=== PATIENT | female | born 1965 | race Caucasian/White ===

== ENCOUNTER 2020-12-26 12:08 | Emergency (ER) | payer SELFPAY ==
[~2020-12-26] VITALS: Ht 154.9 cm; Wt 70.3 kg
[2020-12-26 12:12] VITALS: BP 156/139
--- NOTE | 2020-12-26 12:15 | NUR ---
PT AMBULATED TO BED 04.
[2020-12-26] MEDS ORDERED: NACL 0.9% 1,000 ML IV SCH (12:20)
--- NOTE | 2020-12-26 12:20 | NUR ---
55 YO F BIB SELF FOR C/C OF DIZZINESS SINCE YESTERDAY WITH N/V STARTING TODAY. PT DENIES PAIN AT THIS TIME. PT DENIES FEVER, CHILLS, CONTACT WITH COVID, SOB. 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 SIDE RAILS X1. MED HX: DENIES
--- NOTE | 2020-12-26 12:25 | NUR ---
EKG AT BEDSIDE
--- NOTE | 2020-12-26 12:32 | NUR ---
LABS COLLECTED AND GIVEN TO REGIONAL BRANCH MANAGER
--- NOTE | 2020-12-26 12:36 | NUR ---
RAD AT BEDSIDE
[2020-12-26 12:37] LABS: BASOPHILS % (AUTO) 0.7 % (0.0-2.0); EOSINOPHILS % (AUTO) 0.2 % (0.0-4.0); HEMATOCRIT 39.4 % (36-48); HEMOGLOBIN 13.4 g/dL (12.0-16.0); LYMPHOCYTES # (AUTO) 1.8 K/uL (2.5-16.5); LYMPHOCYTES % (AUTO) 27.2 % (20.5-51.1); MEAN CORPUSCULAR HEMOGLOBIN 32 pg (27-31); MEAN CORPUSCULAR HGB CONC 34 g/dL (33-37); MONOCYTES # (AUTO) 0.4 K/uL (0.8-1.0); MONOCYTES % (AUTO) 5.7 % (1.7-9.3); NEUTROPHILS # (AUTO) 4.3 K/uL (1.8-7.7); NEUTROPHILS % (AUTO) 66.2 % (42.2-75.2); PLATELET COUNT (AUTO) 176 K/uL (140-450); RED BLOOD CELL COUNT(AUTO) 4.15 MIL/uL (4.20-5.40); RED CELL DISTRIBUTION WIDTH 13.7 % (11.6-13.7); WHITE BLOOD COUNT (AUTO) 6.5 K/uL (4.8-10.8)
--- NOTE | 2020-12-26 12:40 | NUR ---
PT AMBULATED TO RR WITH STEADY GAIT TO PROVIDE UA
--- NOTE | 2020-12-26 12:45 | NUR ---
PT AMBULATED BACK TO ROOM. BED LOCKED AND IN LOWEST POSITION. SIDE RAILS X1. ACCOUNT SUPPORT ANALYST AND PULSE OX IN PLACE. UA HANDED TO TOUR BUS DRIVER
[2020-12-26 12:52] LABS: ALBUMIN 3.9 g/dL (3.4-5.0); ANION GAP 14.3 (8-16); CARBON DIOXIDE 25.4 mmol/L (21-32); CREATININE 0.6 mg/dL (0.6-1.3); MAGNESIUM 2.2 mg/dL (1.8-2.4); POTASSIUM 3.7 mmol/L (3.5-5.1); TOTAL BILIRUBIN 0.5 mg/dL (0.0-1.0)
--- NOTE | 2020-12-26 12:53 | NUR ---
ERMD AT BEDSIDE EVALUATING PT
[2020-12-26 13:09] LABS: APPEARANCE,URINE CLEAR (CLEAR); BILIRUBIN,URINE NEGATIVE (NEGATIVE); BLOOD, URINE NEGATIVE (NEGATIVE); COLOR,URINE YELLOW (YELLOW); LEUKOCYTE ESTERASE ,URINE NEGATIVE (NEGATIVE); NITRITE, URINE NEGATIVE (NEGATIVE); UGLUCOSE NEGATIVE (NEGATIVE)
[2020-12-26] MEDS ORDERED: MECL-303 PO (14:22)
[2020-12-26] MEDS ORDERED: ONDA-24 SL (14:22)
[2020-12-26 15:30] VITALS: BP 137/80
--- NOTE | 2020-12-26 15:30 | NUR ---
Patient discharged with v/s stable. Written and verbal after care instructions given and explained. Patient alert, oriented and verbalized understanding of instructions. Ambulatory with steady gait. All questions addressed prior to discharge. ID band removed. Patient advised to follow up with PMD. Rx of meclizine, zofran given. Patient educated on indication of medication including possible reaction and side effects. Opportunity to ask questions provided and answered.
== END 2020-12-26 15:30 | disposition home or self-care (01) ==
LOC: MED 12:08
DX: H81.399 Other peripheral vertigo, unspecified ear (principal); R11.2 Nausea with vomiting, unspecified
CPT/HCPCS: 36415; 71045; 80053; 81003; 82553; 83690; 83735; 84484; 85025; 93005; 96360; 99285; J7030

== ENCOUNTER 2022-01-09 20:17 | Emergency (ER) | payer BC ==
[~2022-01-09] VITALS: Ht 157.5 cm; Wt 68.0 kg
[~2022-01-09 20:17] MED LIST: MECL-303 PO; ONDA-188 SL
[2022-01-09 20:21] VITALS: BP 158/115
--- NOTE | 2022-01-09 20:29 | NUR ---
TO BED 2 FROM TRIAGE
--- NOTE | 2022-01-09 21:20 | NUR ---
xray at bedside
--- NOTE | 2022-01-09 21:30 | NUR ---
56 Y/O FEMALE BIB SELF, C/O LEFT ARM NUMBNESS X1 WEEK. PATIENT PRESENTS TO ED WITH EQUAL STUDIO ENGINEER, EQUAL FACIAL SYMETRY, AND NO LIMB DRIFT. PT STATES X1 WEEK AGO SHE HAD A HEADACHE WHICH STARTED HER LEFT FACE AND LEFT ARM NUMBNESS. SHE TOOK ASPRIN TO RELIEVE THE HEADACHE BUT THE ARM NUMBNESS STAYED. DENIES N/V/D; SKIN IS PINK/WARM/DRY; AAOX4 WITH EVEN AND STEADY GAIT; LUNGS CLEAR BL; HR EVEN AND REGULAR; PT DENIES ANY FEVER, CP, SOB, OR COUGH AT THIS TIME; PATIENT STATES PAIN OF 0/10 AT THIS TIME; VSS; PATIENT POSITIONED FOR COMFORT; HOB ELEVATED; BEDRAILS UP X2; BED DOWN. ER MD MADE AWARE OF PT STATUS. PT DENIES PMH, ALLERGIES, OR MEDS
--- NOTE | 2022-01-09 22:11 | NUR ---
BLOOD COLLECTED BY COURTNEY June RN AND WALKED TO LAB.
[2022-01-09 22:30] LABS: BASOPHILS % (AUTO) 0.6 % (0.0-2.0); EOSINOPHILS # (AUTO) 0.2 K/uL (0-0.4); EOSINOPHILS % (AUTO) 2.9 % (0.0-4.0); HEMATOCRIT 35.9 % (36-48); LYMPHOCYTES # (AUTO) 2.9 K/uL (2.5-16.5); LYMPHOCYTES % (AUTO) 43.3 % (20.5-51.1); MEAN CORPUSCULAR HEMOGLOBIN 32 pg (27-31); MEAN CORPUSCULAR HGB CONC 33 g/dL (33-37); MEAN CORPUSCULAR VOLUME 96.2 fL (80-94); MONOCYTES # (AUTO) 0.4 K/uL (0.8-1.0); MONOCYTES % (AUTO) 6.7 % (1.7-9.3); NEUTROPHILS # (AUTO) 3.1 K/uL (1.8-7.7); NEUTROPHILS % (AUTO) 46.5 % (42.2-75.2); PLATELET COUNT (AUTO) 170 K/uL (140-450); RED BLOOD CELL COUNT(AUTO) 3.74 MIL/uL (4.20-5.40); RED CELL DISTRIBUTION WIDTH 13.7 % (11.6-13.7); WHITE BLOOD COUNT (AUTO) 6.7 K/uL (4.8-10.8)
[2022-01-09 22:53] LABS: ALBUMIN 3.3 g/dL (3.4-5.0); ANION GAP 11.4 (8-16); ASPARTATE AMINOTRANSFERASE 16 U/L (15-37); CARBON DIOXIDE 26.3 mmol/L (21-32); CHLORIDE 107 mmol/L (98-107); CREATININE 0.6 mg/dL (0.6-1.3); GFR ARICAN-AMERICAN 133 mL/min (>90); GLUCOSE 111 mg/dL (74-106); MAGNESIUM 2.1 mg/dL (1.8-2.4); POTASSIUM 3.7 mmol/L (3.5-5.1); SODIUM SERUM 141 mmol/L (136-145); TOTAL BILIRUBIN 0.2 mg/dL (0.0-1.0); UREA NITROGEN, BLOOD 19 mg/dL (7-18)
--- NOTE | 2022-01-09 23:31 | NUR ---
Dr. Sharma examining patient.
[2022-01-09 23:35] VITALS: BP 136/77
--- NOTE | 2022-01-09 23:36 | NUR ---
Patient discharged with v/s stable. Written and verbal after care instructions given and explained. Patient verbalized understanding. Ambulatory with steady gait. All questions addressed prior to discharge. Advised to follow up with PMD. VSS, A/OX4, AMBULATORY, UNLABORED BREATHING, AND CALM DEMEANOR.
== END 2022-01-09 23:36 | disposition home or self-care (01) ==
LOC: MED 20:17
DX: R00.2 Palpitations (principal); F41.9 Anxiety disorder, unspecified; R51.9 Headache, unspecified; M79.602 Pain in left arm; Z79.899 Other long term (current) drug therapy
CPT/HCPCS: 36415; 71045; 80053; 83735; 84484; 85025; 93005; 99285